=== PATIENT | male | born 1980 | race Caucasian/White ===

== ENCOUNTER 2022-02-12 02:10 | Outpatient (CLI) | payer OTHER, SELFPAY ==
[2022-02-12 12:13] LABS: Source Nasal/Nares
[2022-02-12 14:45] LABS: COVID-19 PCR Negative (Negative)
== END 2022-02-12 02:11 | disposition home or self-care (01) ==
LOC: LBO 02:10
PROVIDERS: PCP Family Medicine; Visit Provider Surgery
DX: Z20.822 Contact with and (suspected) exposure to COVID-19 (principal); Z01.818 Encounter for other preprocedural examination
CPT/HCPCS: 87635

== ENCOUNTER 2022-02-14 08:51 | Day surgery (SDC) | payer OTHER, SELFPAY ==
--- NOTE | 2022-02-14 06:37 | COLE_ITS ---
Colonoscopy Report Date of procedure: 02/14/22 Pre-op diagnosis general: Hx of diverticulitis Post-op diagnosis procedure note: other (diverticulosis, internal and external hemorrhoids) Procedure: Colonoscopy Surgeon: Amina Erwin Anesthesia Type: General:No Airway Pathology: none sent Complications: None Disposition: same day Indications: Mr. Mariscal is a pleasant 41-year-old gentleman who is here today to discuss a colonoscopy.? He was admitted in 2019 for diverticulitis and treated with IV and p.o. antibiotics.? He has had some minor left lower quadrant intermittently since then which she has treated with probiotics and changing his diet.? He has not had to go back into the hospital.? He never had a colonoscopy after his episode of diverticulitis due to Covid.? His past medical history is significant for hypertension and hyperlipidemia.? He also states that after his hernia re pairs he was readmitted to the hospital due to dehydration and syncopal episodes.? Have asked him to not take the lisinopril the morning of the procedure. We discussed the procedure of the colonoscopy as well as the prep.? We reviewed the risks and benefits.? He would like to proceed. Risks, benefits and complications have been reviewed. Complications include but are not limited to bleeding, pain, perforation, missed small lesion/polyp, sore throat, aspiration and adverse reaction to the medications. Questions were entertained and answered to their satisfaction and they wished to proceed. No guarantees were given or implied. Proceed with colonoscopy under sedation Prep: Miralax/Dulcolax Procedure Start Time: 11:06 Procedure End Time: 11:22 Retraction Time: 8 minutes Findings: mild to moderate ricks-diverticulosis internal and external hemorrhoids Procedure Description: After informed consent was obtained the patient was taken to the procedure room and placed in a left decubitous position. Monitors were applied and a time out was done. The patients name, date of , procedure, allergies to medications and metal in their body was reviewed. The patient was then sedated. Once sedated and comfortable a rectal exam was done. External exam revealed an external hemorrhoid at the 7 o'clock positionl. Internal exam revealed a normal sphincter tone and no palpable masses. The prostate felt smooth. The scope was then introduced and retro-flexed. Grade 1 internal hemorrhoids were identified. No polyps or masses were identified on retro-flexion. The scope was then advanced to the cecum without difficulty. The ileocecal vlave and appendiceal orifice were identified. The prep was adequate. The scope was then slowly retracted over 8 minutes back into the rectum. There were no polyps. There was mild to moderate ricks- diverticulosis noted. The scope was removed and the patient was woken up and taken back to Same day surgery in stable condition. The patient tolerated the procedure well and there were no immediate complications. Follow up: The patient should follow up in 10 years unless they develop changes in bowel habits or other new gastrointestinal complaints.
--- NOTE | 2022-02-14 06:38 | PDOC.DSDIS_ITS ---
Discharge Plan Disposition Patient Disposition: HOME Condition: Good Discharge Details Reason For Visit: Hx of Diverticulitis Attending Provider: Amina Erwin Primary Care Provider: Lily Bruno Home Meds and New Rx's Prescriptions: Continued fluoxetine 20 mg tablet 20 mg PO DAILY 0RF metoprolol tartrate 25 mg tablet 25 mg PO BID 0RF lisinopril 20 mg tablet 20 mg PO BID 0RF pure digestive enzymes 1 cap PO DAILY 0RF Digestive Advantage Probio-Pre 800 million cell tablet 800 cell PO DAILY 0RF Discontinued bisacodyl [Dulcolax (bisacodyl)] 5 mg tablet,delayed release (DR/EC) 5 mg PO ONCE Qty: 4 0RF polyethylene glycol 3350 17 gram/dose powder 17 g PO ONCE Qty: 238 0RF Discharge Instructions Instructions: Diverticulosis (DC), Hemorrhoids (DC) Additional Instructions: Findings: diverticulosis internal and external hemorrhoids Follow up: at age 52 Please call if you develop: fevers >101.5 Nausea or Vomiting Abdominal pain that is not transient Rectal bleeding that is more then a tbsp A hard abdomen and inability to pass gas DAY SURGERY UNIT POST ENDOSCOPY INSTRUCTIONS Instructions for everyone who is given Anesthesia: For your safety, please do the following for the next 24 Hours: a. Do not drive or operate dangerous equipment b. Do not drink alcohol beverages or use any recreational drugs for the first 24 hours or while taking pain medications. The medications in your body may have a reaction that can be dangerous. c. Do not make any important decisions or sign any important papers 1. Generally there are no restrictions on your activity after a day or so has g one by, but you may feel a bit fatigued for a few days. 2. After you arrive home you may have a light meal and return to a normal diet as you can tolerate it without feeling sick to your stomach. 3. After surgery, you may feel pain or discomfort. This should be only transient, but if it persists please contact your doctor. 4. If there are any questions regarding the findings of your procedure, please feel free to contact your doctor. 6. If you are unable to contact your doctor with a problem, contact the hospital at [phone]. 7. Continue all your regular medications unless directed otherwise. I understand the above instructions and have no questions. Signature of Patient or Responsible Adult Escort Date/Time Name of Responsible Adult Escort Signature of Nurse Date/Time Activity:: Activity as Tolerated Diet:: high fiber Discharge Orders Discharge Orders: Discharge Order (Routine); Ordered 02/14/22 Ordered By: Amina Erwin
[2022-02-14 09:18] VITALS: BP 123/88; PULSE 63; RESP 18; TEMP 36.3; O2SAT 97
[2022-02-14] MEDS: Lactated Ringers 1,000 ML 80 ML IV (09:49)
[2022-02-14 09:57] VITALS: BMI 34.9
--- NOTE | 2022-02-14 09:57 | W.ANESPRE ---
General Info Date of Service Date Performed: 02/14/22 Height: 5 ft 9 in Weight: 107.2 kg Body Mass Index (BMI): 34.9 Surgical Procedure: Operation Date: 02/14/22 11:05 Proposed Procedure Side Surgeon p Colonoscopy Amina Erwin MD Meds Allergies and Home Medications Allergies Allergy/AdvReac Type Severity Reaction Status Date / Time Cephalosporins Allergy Severe Verified 02/14/22 09:28 Penicillins Allergy Severe Anaphylaxis Verified 02/14/22 09:28 Home Medication Medication Instructions Recorded Bacillus coagulans 800 million 800 cell PO DAILY 02/06/22 cell tablet (Digestive Advantage Probiotics-Prebiotic) bisacodyl 5 mg tablet,delayed 5 mg PO ONCE #4 tab 02/06/22 release (Dulcolax (bisacodyl)) fluoxetine 20 mg tablet 20 mg PO DAILY 02/06/22 lisinopril 20 mg tablet 20 mg PO BID 02/06/22 metoprolol tartrate 25 mg tablet 25 mg PO BID 02/06/22 polyethylene glycol 3350 17 17 g PO ONCE #238 g 02/06/22 gram/dose oral powder pure digestive enzymes 1 cap PO DAILY 02/06/22 Current Visit Medications: Current Medications Generic Name Dose Route Start Last Admin Trade Name Freq PRN Reason Stop Dose Admin Hyoscyamine Sulfate 0.125 mg 02/14/22 06:38 Hyoscyamine 0.125 Mg Sl/Oral/Chew SL DIRECTED PRN Ringer's Solution 1,000 mls @ 80 mls/hr 02/14/22 06:00 02/14/22 09:49 IV 03/03/22 23:59 80 mls/hr INFUSION THADDEUS Administration IV Miscellaneous Supplies 1 each 02/14/22 06:00 Iv Access IV 03/03/22 23:59 DIRECTED THADDEUS Ondansetron HCl 4 mg 02/14/22 06:38 Ondansetron 4 Mg/2 Ml Vial IVP Q4H PRN PRN Nausea / Vomiting Sodium Chloride 0 ml 02/14/22 06:00 Normal Saline Flush 10 Ml Syr IV 03/03/22 23:59 PRN PRN Sodium Chloride 0 ml 02/14/22 06:00 Normal Saline 10 Ml Vial IJ 03/03/22 23:59 DIRECTED PRN Sterile Water 0 ml 02/14/22 06:00 Water,Injection,Sterile 10 Ml Vial IJ 03/03/22 23:59 DIRECTED PRN PFSH Active Problems Active Problems: Problem Status Onset Code Hx of diverticulitis of colon Z87.19 Medical History Medical History Anxiety Gout Hyperlipidemia Hypertension Medical History Comments:: Pt states prior surgeries he has become very dehydrated day after or over come by the medications given, namely, Versed. He said his PCP said to give bolus or zofran if needed. Surgical History Surgical History S/P inguinal hernia repair using synthetic patch 1986, 1992, 2011 S/P laparoscopic cholecystectomy (~2009) Tobacco Smoking/Tobacco Use Status: Former Tobacco Use Alcohol Alcohol Intake: never Substance Use Substance use: Never Substance use type: does not use Vital Signs and Lab Results Vital Signs Most Recent Vital Signs in EMR: Most Recent Vital Signs Temp Pulse Resp BP Pulse Ox 36.3 C L 63 18 123/88 97 02/14/22 09:18 02/14/22 09:18 02/14/22 09:18 02/14/22 09:18 02/14/22 09:18 Lab Results Blood Type / Crossmatch: No Data to Display Complete Blood Count: No Data to Display Complete Metabolic Panel: No Data to Display Liver Function Panel: No Data to Display Coagulation Panel: No Data to Display Cardiac Panel: No Data to Display Arterial Blood Gas: No Data to Display Venous Blood Gas: No Data to Display Pancreas Panel: No Data to Display Thyroid Panel: No Data to Display Infectious Disease: Coronavirus (COVID-19)(PCR) Negative (Negative) 02/12/22 09:55 02/12/22 Coronavirus 2019 Source Nasal/Nares 02/12/22 09:55 02/12/22 Blood Cultures: No Data to Display Toxicology Panel: No Data to Display Anesthesia Assessment and Plan Anesthesia History Personal History: No History of Anesthesia Complications Family History: No Family History of Anesthesia Complications Exercise Tolerance Exercise Tolerance: Metabolic Equivalents>4 Pertinent Negatives Pertinent Negatives: No Symptoms of GERD, No Major Cardiovascular Symptoms or Complaints, No Major Pulmonary Symptoms or Complaints and No History of CVA/TIA Cardiac & Pulmonary Exam Cardiac Exam: Normal S1/S2 Heart Sounds Pulmonary Exam: Clear Bilateral Breath Sounds Implantable Cardiac Device Does patient have a Pacemaker or an ICD?: No Airway Exam Known Difficult Airway: No Mallampati Class: 2 Mouth Opening: Normal (> 3cm) Thyromental Distance: Greater than 3 cm Facial Hair: Full Dangelo Neck Range of Motion: Full ROM Neck Circumference: Normal Teeth Condition: Normal Dentition ASA Classification ASA Score: ASA 2 Emergency Case?: No NPO Status NPO Status: NPO Clears >2 hours, Solids >8 hours Anesthesia Plan Resuscitation Status: Full Code Anesthesia Technique: General Anesthesia Airway Planned: Natural Airway Monitors Used: Standard Monitors Preoperative Comments:: Myalgias and cramping postoperative in the past. Concerned related to versed as the culprit. Cramps in chest wall, legs, fingers and toes. Reports sometimes has same symptoms after long work days with repetitive motion. Non-alcoholic fatty liver disease
[2022-02-14 11:31] VITALS: BP 118/75; PULSE 59; RESP 18; TEMP 36.3; O2SAT 98
[2022-02-14 12:00] VITALS: BP 111/68; PULSE 50; RESP 16; TEMP 36.2; O2SAT 99
--- NOTE | 2022-02-14 12:11 | W.ANESPOSTOP ---
Postoperative Evaluation Date, Time and Location Date Performed: 02/14/22 Time Performed: 12:08 Patient Location: Day Surgery Unit Vital Signs Most Recent Imported Vital Signs: Most Recent Vital Signs Temp Pulse Resp BP Pulse Ox 36.3 C L 59 L 18 118/75 98 02/14/22 11:31 02/14/22 11:31 02/14/22 11:31 02/14/22 11:31 02/14/22 11:31 Pain Score Most Recent Pain Score: Most Recent Pain Score Pain Level 0 02/14/22 11:31 Assessment Mental Status: Awake (Alert & Oriented to Patient Baseline) Airway and Respiratory Function: Patent airway with normal (patient baseline) respiratory exam Cardiovascular Function: Hemodynamically Stable Hydration Status: Adequately Hydrated Nausea & Vomiting: No Nausea or Vomiting Pain: Pt. Denies Any Pain Peripheral Nerve Block: Patient did not receive a nerve block
== END 2022-02-14 12:31 | disposition home or self-care (01) ==
PROVIDERS: PCP Family Medicine; Visit Provider Surgery
PROC: 0DJD8ZZ Inspection of Lower Intestinal Tract, Via Natural or Artificial Opening Endoscopic (ICD-10-PCS; CPT 45378; principal; 2022-02-14 11:00)
DX: K57.30 Diverticulosis of large intestine without perforation or abscess without bleeding (principal); I10 Essential (primary) hypertension; E78.5 Hyperlipidemia, unspecified; K64.0 First degree hemorrhoids
CPT/HCPCS: 45378; J2001; J2405

== ENCOUNTER 2025-01-24 08:24 | Emergency (ER) | payer BC, SELFPAY ==
[2025-01-24] VITALS (18 sets, daily range): BP systolic 152–194; BP diastolic 94–119; PULSE 57–80; RESP 10–24; TEMP 36.4; O2SAT 96–100
--- NOTE | 2025-01-24 08:15 | RT.EKG_ITS ---
APPROVED REPORT Exam: Resting ECG Reason for Exam: Palpatations Patient Location: E HR:62 bpm ECG Measurements Heart Rate 62 AXIS HI 176 P 33 QRSd 91 QRS 11 QT 403 T 12 QTc 410 Conclusion Sinus rhythm...normal P axis, V-rate 60- 99 I have reviewed and interpreted ECG and agree with software generated interpretation.
--- NOTE | 2025-01-24 08:45 | DI.CT_ITS ---
Exam(s) CT THORAX ABD/PEL CTA EXAM: CT THORAX ABD/PEL CTA CLINICAL HISTORY: chest pain, family hx of AAA. TECHNIQUE: Imaging Protocol: Axial CT angiography was performed with multi-slice acquisition and m ulti-planar and/or 3D reconstructions. CONTRAST MATERIAL: Intravenous: Omnipaque 350 Contrast volume:100 Oral: no COMPARISON: No exams were available for comparison FINDINGS: CHEST: Pulmonary Arteries: No evidence of filling defect to suggest pulmonary emboli. Tracheobronchial tree: Patent where visualized. Mediastinum and Esme: No dominant adenopathy or fluid collection. Pulmonary parenchyma: No consolidation or dominant measurable mass. Mild emphysematous changes in the upper lobes. Pleura: No effusion or pneumothorax. Heart: The heart is not dilated. No coronary artery calcifications are seen. Aorta: Thoracic aorta non-dilated. No atherosclerotic calcifications are plaque visible. Bones: Normal. Tubes, Catheters, and Lines: ABDOMEN AND PELVIS: Abdomen: Celiac axis/mesenteric arteries: No evidence of occlusion or significant stenosis. Renal Arteries: No evidence of occlusion or significant stenosis. There is a single renal artery per fusing each kidney. Aorta: No evidence of occlusion or significant stenosis. No aneurysm or dissection. Minimal athero sclerotic changes. Pelvis: Iliac Arteries: No evidence of occlusion or significant stenosis. Mild calcification. Common Femoral Arteries: No evidence of occlusion or significant stenosis. ABDOMEN AND PELVIS: Liver: Normal density. No measurable mass. Portal, Superior Mesenteric, and Splenic Veins: Unremarkable. Gallbladder and Biliary Tract: The gallbladder is not visualized. No biliary dilation. Pancreas: Normal density, no abnormal calcifications or inflammatory process. Spleen: Normal. Adrenals: No masses seen. Kidneys: Normal size, contour and axis. No radiodense stones or obstructive uropathy. No masses seen. Bowel: No obstruction or bowel wall thickening. Appendix is unremarkable. Diverticulosis from the t ransverse through sigmoid colon. No evidence of diverticulitis. Normal quantity of stool. Peritoneal Cavity: No ascites, collection or mesenteric inflammatory response. Lymph Nodes: Within normal limits. Soft Tissues: Unremarkable. Bladder: Berkley distended, to the level of the umbilicus. No gross wall thickening. Reproductive Organs: Unremarkable as visualized. Lymph Nodes: Within normal limits. Bones: Bilateral L5 some pars defects. IMPRESSION: No evidence of aortic dissection or aneurysm. Mild atherosclerotic calcification of the lower abdomi nal aorta and iliac arteries. Branch vessels are patent. Emphysematous changes. No acute abnormality in the chest. No visible pulmonary emboli. Over distended urinary bladder. Diverticulosis without evidence of diverticulitis. RADIATION DOSE DELIVERED: Total DLP DATA REPOSITORY: All CT scans at this facility are submitted to the National Radiology Data Registry (NRDR) Dose Index Registry (DIR) with the [employer] (ACR). RADIATION OPTIMIZATION: All CT scans at this facility use at least one of these dose optimization te chniques: automated exposure control; mA and/or kV adjustment per patient size (includes targeted exa ms where dose is matched to clinical indication); or iterative reconstruction.
[2025-01-24 08:47] LABS: Abs Immature Grans 0.02 10^3/uL (0.0-0.06); Absolute Basophil Count 0.03 10^3/uL (0.0-0.2); Absolute Eosinophil Count 0.25 10^3/uL (0.0-0.7); Absolute Lymphocyte Count 2.09 10^3/uL (1.2-3.4); Basophils % 0.5 %; Eosinophils % 4.2 %; HCT 44.2 % (40.0-50.0); HGB 14.9 g/dL (13.5-17.5); Immature Grans % 0.3 %; Lymphocytes % 35.5 %; MCH 27.8 pg (27.0-33.0); MCHC 33.7 % (32.0-36.0); MCV 83 fL (80-95); MPV 8.6 fL (8.0-11.0); Monocytes % 5.1 %; Neutrophils % 54.4 %; Platelet Count 245 10^3/uL (130-400); RBC 5.36 10^6/uL (4.36-5.78); RDW 13.1 % (11.8-14.1); RDW-SD 38.9 fL; WBC 5.89 10^3/uL (4.4-10.8)
[2025-01-24] MEDS: LORazepam 2 MG/ML VIAL 1 MG IVP (09:06)
[2025-01-24 09:16] LABS: ALT 35 U/L (16-63); AST 16 U/L (15-37); Albumin 4.3 g/dL (3.4-5.0); Alkaline Phosphatase 50 U/L (46-116); Anion Gap 8.2 mmol/L (3-11); BUN 14 mg/dL (7-18); Bilirubin, Total 0.9 mg/dL (0.2-1.0); CO2 29.8 mmol/L (21.0-32.0); CREATININE 0.9 mg/dL (0.70-1.30); Calcium 9.3 mg/dL (8.5-10.1); Chloride 104 mmol/L (98-107); Estimated GFR 109.36 (mL/min/1.73m2); Glucose 116 mg/dL (74-106); Magnesium 2.1 mg/dL; Potassium 4.4 mmol/L (3.5-5.1); Sodium 142 mmol/L (136-145); Total Protein 7.8 g/dL (6.4-8.2); Troponin I 5 ng/L (<or=76)
[2025-01-24] MEDS: Omnipaque 350 MG/ML 100 ML BTL IJ (09:18)
[2025-01-24] MEDS: Normal Saline - Diluent 50 ML VIAL IJ (09:19)
--- NOTE | 2025-01-24 09:49 | DI.VRAD_ITS ---
PROCEDURE INFORMATION: Exam: CTA Chest With Contrast CTA Abdomen and Pelvis With Contrast Exam date and time: 01/24/2025 9:12 AM Age: 44 years old Clinical indication: Other: Chest pain, family HX of aaa TECHNIQUE: Imaging protocol: Computed tomographic angiography of the chest with contrast. Exam focused on the arteries. Computed tomographic angiography of the abdomen and pelvis with contrast. Exam focused on the arteries. 3D rendering (Not supervised by radiologist): MIP and/or 3D reconstructed images were created by the technologist. Contrast material: OMNIPAQUE 350; Contrast volume: 100 ml; Contrast route: INTRAVENOUS (IV); COMPARISON: No relevant prior studies available. FINDINGS: Limitations: Mild motion artifact. VASCULATURE: Pulmonary arteries: No pulmonary embolus identified. Aorta: No aortic aneurysm. No aortic dissection. Celiac trunk and mesenteric arteries: No occlusion or significant stenosis. Renal arteries: No occlusion or significant stenosis. Right iliac arteries: No occlusion or significant stenosis. Left iliac arteries: No occlusion or significant stenosis. Other findings: Arterial calcifications. CHEST: Lungs: Emphysematous changes in the lungs. Pleural spaces: No pleural effusion. Heart: No pericardial effusion. ABDOMEN AND PELVIS: Liver: Hepatic steatosis. Gallbladder and biliary ducts: Gallbladder not visualized. Pancreas: No evidence for acute pancreatitis. Spleen: No splenomegaly. Adrenal glands: No adrenal masses. Kidneys and ureters: No hydronephrosis. Stomach and bowel: No intestinal obstruction is evident. Colonic diverticula. Areas of apparent mural thickening in the colon commensurate with underdistention. Appendix: No evidence of appendicitis. Intraperitoneal space: No free air. Urinary bladder: No wall thickening. Reproductive: No acute abnormality. Lymph nodes: Nonspecific mesenteric lymph nodes. 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 Soft tissues: Unremarkable. IMPRESSION: 1. No acute findings to explain reported symptoms. 2. Nonacute findings as outlined above. Dictated and Authenticated by: Magali Moreno MD. Orderin Aldo Villavicencio MD
[2025-01-24 10:39] LABS: Troponin I 7 ng/L (<or=76)
--- NOTE | 2025-01-24 11:14 | ED.GENADUL_ITS ---
Discharge Plan Disposition Patient Disposition: Home Condition: Stable Discharge Details Clinical Impression: Chest pain, Shortness of breath, Jaw pain Primary Care Provider: Lily Bruno ED Provider: Maye Carlson Home Meds and New Rx's Prescriptions: New albuterol sulfate [Ventolin HFA] 90 mcg/actuation HFA aerosol inhaler 2 puff inhalation Q6H PRNQty: 6.7 0RF prednisone 20 mg tablet 40 mg PO DAILY Qty: 10 0RF Continued Digestive Advantage Probio-Pre 800 million cell tablet 800 cell PO DAILY psyllium husk 3 gram/5.4 gram powder 1 tbsp PO DAILY Rx Instructions: mix into at least 8 oz of water or juice before administering lisinopril 10 mg tablet 10 mg PO DAILY Patient Comments: TAKE 1 TABLET BY MOUTH ONCE DAILY Discharge Instructions Instructions: Shortness of Breath, Adult ED Additional Instructions: If you continue to have symptoms he may benefit from having a stress test in the outpatient setting In the interim try using the albuterol 2 puffs every 4-6 hours with spacer Take the steroid prescription as prescribed Follow-up with your primary care physician and return earlier should you have new or worsening complaints Your diagnostic labs including your heart enzymes were all within normal limits and the CAT scan of your chest abdomen and pelvis is reassuring Referrals: Lily Bruno [Primary Care Provider] - 1 week HPI General Date/Time Provider Initiated Documentation: 01/24/25 08:31 . HPI Narrative: This 44-year-old male with history of hypertension presents with report of chest pain shortness of breath and tingling throughout his face which has been going on intermittently since December 01. Patient reportedly has been sick multiple times and has actually been evaluated by his doctors been trying to manage him conservatively. Patient presents today secondary to worsening shortness of breath. He denies any fever or chills or any additional headaches or dizziness. He states that he has pressure in his face on the right side of his chest which is constant but worse with swallowing. He does state he was given a prescription for antibiotic but is not sure that he actually needs an antibiotic at this time. He denies any new medications or any additional concerns at this time. Related Data Home Medications ?Medication ?Instructions ?Recorded ?Confirmed Bacillus coagulans 800 million 800 cell PO DAILY 02/06/22 01/24/25 cell tablet (Digestive Advantage Probiotics-Prebiotic) psyllium husk 3 gram/5.4 gram oral 1 tbsp PO DAILY 07/02/23 01/24/25 powder albuterol sulfate 90 mcg/actuation 2 puff inhalation Q6H PRN #6.7 01/24/25 aerosol inhaler (Ventolin HFA) grams lisinopril 10 mg tablet 10 mg PO DAILY 01/24/25 01/24/25 prednisone 20 mg tablet 40 mg (2 x 20 mg) PO DAILY #10 tabs 01/24/25 Previous Rx's ?Medication ?Instructions ?Recorded albuterol sulfate 90 mcg/actuation 2 puff inhalation Q6H PRN #6.7 01/24/25 aerosol inhaler (Ventolin HFA) grams prednisone 20 mg tablet 40 mg (2 x 20 mg) PO DAILY #10 tabs 01/24/25 Allergies Allergy/AdvReac Type Severity Reaction Status Date / Time Cephalosporins Allergy Severe Anaphylaxis Verified 01/24/25 08:36 Penicillins Allergy Severe Anaphylaxis Verified 01/24/25 08:36 General Stated Complaint: Palpitatns DAYANNA: 3 Exam Narrative Exam Narrative: On arrival patient is alert and oriented he is not in acute distress he has no palpable thyromegaly TMs are clear bilaterally no carotid bruit no abdominal bruit or pulsatile mass lungs clear to auscultation no acute distress pupils equal round reactive to light and accommodation cardiac rate rhythm regular no peripheral edema alert and oriented x 4 Course Vital Signs Vital signs: Vital Signs Temperature 36.4 C L 01/24/25 08:30 Pulse 66 01/24/25 08:30 Respiratory Rate 16 01/24/25 08:30 Blood Pressure 163/94 H 01/24/25 08:30 Pulse Oximetry 100 01/24/25 08:30 Temperature 36.4 C L 01/24/25 08:30 Temperature Source Oral 01/24/25 08:30 Pulse 67 01/24/25 09:01 Pulse 66 01/24/25 09:01 Respiratory Rate 18 01/24/25 09:01 Blood Pressure 152/98 H 01/24/25 09:01 Blood Pressure Mean 115 01/24/25 09:01 Blood Pressure Position Sitting 01/24/25 08:30 Pulse Oximetry 96 01/24/25 09:01 Oxygen Delivery Method Room Air 01/24/25 08:30 Oxygen Flow Rate 0 01/24/25 08:30 Pain Level 1 01/24/25 08:30 Lab/Test Results Lab/Test Results: Laboratory Tests Range/Units 01/24/25 01/24/25 01/24/25 08:39 08:40 10:03 WBC (4.4-10.8) 10^3/uL 5.89 RBC (4.36-5.78) 10^6/uL 5.36 Hgb (13.5-17.5) g/dL 14.9 Hct (40.0-50.0) % 44.2 MCV (80-95) fL 83 MCH (27.0-33.0) pg 27.8 MCHC (32.0-36.0) % 33.7 RDW (11.8-14.1) % 13.1 Plt Count (130-400) 10^3/uL 245 MPV (8.0-11.0) fL 8.6 Immature Gran % % 0.3 Neutrophils % % 54.4 Lymphocytes % % 35.5 Monocytes % % 5.1 Eosinophils % % 4.2 Basophils % % 0.5 Nucleated RBC % (0.0-0.3) % 0.0 Absolute Neutrophils (1.2-6.7) 10^3/uL 3.20 Absolute Lymphocytes (1.2-3.4) 10^3/uL 2.09 Absolute Monocytes (0.1-0.8) 10^3/uL 0.30 Absolute Eosinophils (0.0-0.7) 10^3/uL 0.25 Absolute Basophils (0.0-0.2) 10^3/uL 0.03 Sodium (136-145) mmol/L 142 Potassium (3.5-5.1) mmol/L 4.4 Chloride (98-107) mmol/L 104 Carbon Dioxide (21.0-32.0) mmol/L 29.8 Anion Gap (3-11) mmol/L 8.2 BUN (7-18) mg/dL 14 Creatinine (0.70-1.30) mg/dL 0.9 Est GFR (CKD-EPI 2020) (mL/min/1.73m2) 109.36 Glucose (74-106) mg/dL 116 H Calcium (8.5-10.1) mg/dL 9.3 Magnesium mg/dL 2.1 Total Bilirubin (0.2-1.0) mg/dL 0.9 AST (15-37) U/L 16 ALT (16-63) U/L 35 Alkaline Phosphatase (46-116) U/L 50 Troponin I Cancelled 5 7 Total Protein (6.4-8.2) g/dL 7.8 Albumin (3.4-5.0) g/dL 4.3 TSH Cancelled 1.00 Medical Decision Making 44-year-old male presenting in no acute distress, family history of abdominal aortic aneurysm and early cardiac history so I did perform cardiac workup and CTA of patient's chest abdomen and pelvis. Patient has 2 negative troponins diagnostic labs including thyroid better all within normal limits there is no potassium abnormalities and magnesium is stable. CTA chest abdomen and pelvis per radiology interpretation and my review does not show evidence of acute pathology Secondary to the worsening shortness of breath and chest discomfort I will try prednisone and albuterol. Patient may benefit from having a stress test secondary to family history at some point in the near future. He will be referred back to primary care physician and will return earlier should he have new or worsening complaints. He is encouraged to have his blood pressure rechecked by primary care physician. Quality:SDOH Health Related Social Needs: No Data to Display PFSH All Active Problems (Updated 01/24/25 @ 10:53 by ARNAUD Sosa) Jaw pain (Acute) Shortness of breath (Acute) Chest pain (Acute) Hx of diverticulitis of colon (Acute) Medical History (Updated 01/24/25 @ 10:53 by ARNAUD Sosa) Hypertension Anxiety Gout Hyperlipidemia Surgical History (Updated 07/02/23 @ 10:35 by Amina Erwin MD) S/P colonoscopy (~02/2022) S/P laparoscopic cholecystectomy (~2009) S/P inguinal hernia repair using synthetic patch 1986, 1992, 2011 Family History Father Hyperlipidemia Lung disease Hypertension Maternal Grandmother Diabetes Mother Lung disease Social History Smoking/Tobacco Use Status: Former Tobacco Use Quit Date: 11/04/09 Smoking risk assessment performed?: Yes Alcohol Intake: never Drug use: Never Substance use type: does not use Household members: spouse and children Housing: house current occupation: agriculture Current gender identity: male Do you feel safe at home: Yes Do you feel safe in your relationship?: Yes
== END 2025-01-24 11:17 | disposition home or self-care (01) ==
LOC: ER 10:56
PROVIDERS: Emergency Provider Physician Assistant; PCP Family Medicine
DX: R07.9 Chest pain, unspecified (principal); R68.84 Jaw pain; R06.02 Shortness of breath; I10 Essential (primary) hypertension; Z82.49 Family history of ischemic heart disease and other diseases of the circulatory system
CPT/HCPCS: 36415; 71275; 80053; 93005; 96374; 99285; 74174; 83735; 84443; 84484; 85025; 93010; 99284; J2060; J3490